=== PATIENT | male | born 1960 | race Caucasian/White ===

== ENCOUNTER 2017-11-25 11:28 | Emergency (ER) | payer OTHER ==
[2017-11-25 11:38] VITALS: TEMP 98.2
--- NOTE | 2017-11-25 11:58 | EDPHY ---
H & P Stated Complaint: R flank pain since last night no known trauma, chills, N/V. urgency Time Seen by Provider: 11/25/17 11:43 HPI/ROS: Chief Complaint: Right flank pain HPI: 57-year-old male who is visiting from out of town began having right flank pain yesterday evening. Pain was severe, worse an 8/10. Is similar to prior kidney stone pain in the past. Took some Tylenol without significant relief. Has also had some urinary urgency and hesitancy. Some subjective fevers and chills at home. Pain is actually improved right now. No falls or injuries. No chest pain or shortness of breath. No other associated symptoms at this time. There are no aggravating or alleviating factors. ROS: 10 point Review of Systems is negative except as noted in the HPI. PMH: Kidney stone Social History: No smoking, no alcohol, no recreational drug use Family History: non-contributory Physical Exam: Gen: Awake, Alert, No Distress HEENT: Nose: no rhinorrhea Eyes: PERRLA, EOMI Mouth: Moist mucosa Neck: Supple, no JVD Chest: nontender, lungs clear to auscultation Heart: S1, S2 normal, no murmur Abd: Soft, non-tender, no guarding Back: Mild right CVA tenderness, no midline tenderness Ext: no edema, non-tender Skin: no rash Neuro: CN II-XII intact, Sensation grossly intact, Strength 5/5 in bilateral upper and lower extremities - Medical/Surgical History Hx Asthma: No Hx Chronic Respiratory Disease: No Hx Diabetes: No Hx Cardiac Disease: No Hx Renal Disease: No Hx Cirrhosis: No Hx Alcoholism: No Hx HIV/AIDS: No Hx Splenectomy or Spleen Trauma: No Other PMH: r knee surgery. kidney stones - Social History Smoking Status: Never smoked Constitutional: Initial Vital Signs Temperature (C) 36.8 C 11/25/17 11:34 Heart Rate 80 11/25/17 11:34 Respiratory Rate 16 11/25/17 11:34 Blood Pressure 140/90 H 11/25/17 11:34 O2 Sat (%) 97 11/25/17 11:34 O2 Delivery Mode Room Air Allergies/Adverse Reactions: aspirin Allergy (Verified 11/25/17 11:33) ibuprofen Allergy (Verified 11/25/17 11:32) Penicillins Allergy (Verified 11/25/17 11:33) Home Medications: Medication Instructions Recorded Tylenol Arthritis 11/25/17 Medical Decision Making ED Course/Re-evaluation: 57-year-old male with symptoms consistent with a kidney stone. No infection. Will give him a dose of tamsulosin now. Will send him home with a hydrocodone prepack. Will follow up with his doctor at [place] when he returns to [place] tomorrow. - Data Points Laboratory Results: 11/25/17 11:30 Urine Color COLORLESS Urine Appearance CLEAR Urine pH 7.0 (5.0-7.5) Ur Specific Hydes < 1.001 L (1.002-1.030) Urine Protein NEGATIVE (NEGATIVE) Urine Ketones NEGATIVE (NEGATIVE) Urine Blood 1+ H (NEGATIVE) Urine Nitrate NEGATIVE (NEGATIVE) Urine Bilirubin NEGATIVE (NEGATIVE) Urine Urobilinogen NEGATIVE EU EU (0.2-1.0) Ur Leukocyte Esterase NEGATIVE (NEGATIVE) Urine RBC 1-3 /hpf /hpf (0-3) Urine WBC NONE SEEN /hpf /hpf (0-3) Ur Epithelial Cells NONE SEEN /lpf /lpf (NONE-1+) Urine Glucose NEGATIVE (NEGATIVE) Medications Given: Discontinued Medications Morphine Sulfate (Morphine) 4 mg IVP ONCE ONE Stop: 11/25/17 11:55 Last Admin: 11/25/17 11:59 Dose: 4 mg Departure - Departure Disposition: Home, Routine, Self-Care Clinical Impression: Renal colic Condition: Good Instructions: Renal Colic (ED) Additional Instructions: You may take hydrocodone, 1-2 tablets every 4-6 hours as needed for pain. Follow up with your doctor at [place] tomorrow when you return home to [place]. Referrals: NONE *PRIMARY CARE P,. [Primary Care Provider] - As per Instructions
[2017-11-25] MEDS ORDERED: HYDROCOD/APAP 5/325 PREPACK#6 BTL TAKEHOME ONE (12:42)
[2017-11-25] MEDS ORDERED: TAMSULOSIN HCL 0.4 MG CAP PO ONE (12:42)
[2017-11-25 13:05] VITALS: BP 145/84; PULSE 82; RESP 18; O2SAT 96
== END 2017-11-25 13:04 | disposition home or self-care (01) ==
DX: N23 Unspecified renal colic (principal)
CPT/HCPCS: 96374; J2270